=== PATIENT | male | born 1980 | race Caucasian/White ===

== ENCOUNTER 2021-06-17 10:05 | Emergency (ER) | payer OTHER ==
[~2021-06-17] VITALS: Ht 167.6 cm; Wt 95.7 kg
--- NOTE | 2021-06-17 10:50 | NUR ---
PT TO ROOM FROM LOBBY.
--- NOTE | 2021-06-17 10:58 | NUR ---
PT HERE FOR C/O RUQ ABD PAIN X2 MONTHS, REPORTS PAIN HAS INCREASED AND WAS SEEN IN [facility] TODAY PT ADVISED TO COME IN FOR DIAGNOSTIC STUDIES. DR. BLAND AT BEDSIDE FOR EVAL.
[2021-06-17 11:34] LABS: BASOPHILS % (AUTO) 0 % (0-1); EOSINOPHILS % (AUTO) 1 % (1-7); LYMPHOCYTES % (AUTO) 30 % (22-44); MEAN CORPUSCULAR HEMOGLOBIN 28.7 pg (27.5-34.5); MEAN CORPUSCULAR HGB CONC 33.9 g/dL (33.2-36.2); MEAN PLATELET VOLUME 7.9 fL (7.4-10.4); MONOCYTES % (AUTO) 6 % (2-9); NEUTROPHILS % (AUTO) 63 % (42-75); PLATELET COUNT 324 x10^3/uL (130-400); RED BLOOD COUNT 5.35 x10^6/uL (4.38-5.82); RED CELL DISTRIBUTION WIDTH 14.3 % (9.4-14.8)
[2021-06-17 11:41] LABS: ALANINE AMINOTRANSFERASE 43 U/L (12-78); CALCIUM 9.2 mg/dL (8.5-10.1); CREATININE 0.85 mg/dL (0.7-1.3)
[2021-06-17 11:44] LABS: ALKALINE PHOSPHATASE 88 U/L (45-117); BILIRUBIN,TOTAL 0.9 mg/dL (0.2-1.0); TOTAL PROTEIN 8.1 g/dL (6.4-8.2)
[2021-06-17 12:00] LABS: ANION GAP 3 mmol/L (5-15); CHLORIDE 108 mmol/L (98-107)
--- NOTE | 2021-06-17 12:11 | NUR ---
PT RESTING IN NAD, VSS. TRANSPORTED TO CT.
[2021-06-17] MEDS ORDERED: OMNIPAQUE 350 MG/ML, 100ML BOTTLE ONE (12:46)
[2021-06-17 13:00] LABS: MICROSCOPIC NOT IND
[2021-06-17 13:38] VITALS: BP 133/73
== END 2021-06-17 13:42 | disposition home or self-care (01) ==
LOC: ED 11:46
DX: R10.84 Generalized abdominal pain (principal)
CPT/HCPCS: 36415; 74177; 80053; 81003; 83690; 85025; 99285; Q9967